=== PATIENT | male | born 1980 | race African-American/Black ===

== ENCOUNTER 2019-08-02 07:30 | Emergency (ER) | payer OTHER ==
[~2019-08-02] VITALS: Ht 182.9 cm; Wt 99.8 kg
[~2019-08-02 07:30] MED LIST: ACETAMINOPHEN-1 EAC1 PO; AMOXICILLIN 50500 M1; AMOXICILLIN 50500 M1 PO; AMOXICILLIN 50500 MG PO; AMOXICILLIN500 M1 PO; BYSTOLIC 5 MG5 MG PO; BYSTOLIC10 MG; CARISOPRODOL 3350 MG PO; DOXYCYCLINE 10100 M1 PO; FLEXERIL PO; HYDROCODONE-AP1 EAC6 PO; IBUPROFEN 600600 M1; IBUPROFEN 600600 M1 PO; IBUPROFEN 800800 M1 PO; IBUPROFEN 800800 MG PO; LIDOCAINE VISC100 M1 MUCOUS MEM; LISINOPRIL10 MG; LISINOPRIL20 MG PO; LISINOPRIL40 MG PO; MEDROLDOSEPACK PO; MOBIC15 MG PO; NAPROSYN500 MG PO; NOHOMEMEDICATIONS; NORCO 5-325 TA1 EACH PO; NORFLEX100 MG PO; PENICILLIN V P500 MG PO; PENICILLIN VK250 MG PO; PENICILLIN VK500 M1 PO; PREDNISONE 20 M20 MG PO; PRINIVIL20 MG; TRAMADOL 50 MG50 MG PO; ULTRAM 50MG TAB50 MG PO; ULTRAM50 MG PO; VALIUM5 MG PO; VICODIN 5-5001 EACH PO
[2019-08-02] MEDS ORDERED: AMOXICILLIN 50500 MG PO (07:46)
[2019-08-02] MEDS ORDERED: NAPROSYN500 MG PO (07:46)
[2019-08-02 08:45] VITALS: BP 141/106
== END 2019-08-02 08:45 | disposition home or self-care (01) ==
LOC: M.ERS 07:30
DX: K02.9 Dental caries, unspecified (principal); I10 Essential (primary) hypertension; Z88.6 Allergy status to analgesic agent

== ENCOUNTER 2020-05-07 23:45 | Emergency (ER) | payer OTHER ==
[~2020-05-07] VITALS: Ht 182.9 cm; Wt 97.5 kg
[2020-05-08] MEDS ORDERED: IBUPROFEN 800800 MG PO (02:38)
[2020-05-08] MEDS ORDERED: HYDROCODON-ACE1 EAC7 PO ×2 (02:38→02:41)
[2020-05-08 02:48] VITALS: BP 144/89
== END 2020-05-08 02:48 | disposition home or self-care (01) ==
LOC: M.ERS 23:45
DX: S63.611A Unspecified sprain of left index finger, initial encounter (principal); I10 Essential (primary) hypertension; Z79.899 Other long term (current) drug therapy; Z88.5 Allergy status to narcotic agent; W23.0XXA Caught, crushed, jammed, or pinched between moving objects, initial encounter; Y93.89 Activity, other specified; Y92.89 Other specified places as the place of occurrence of the external cause; Y99.8 Other external cause status

== ENCOUNTER 2020-09-02 06:15 | Emergency (ER) | payer OTHER ==
[~2020-09-02] VITALS: Ht 182.9 cm; Wt 97.5 kg
[~2020-09-02 06:15] MED LIST changes: +HYDROCODON-ACE1 EAC7 PO; +VOLTAREN GEL 1100 G2 TOP
[2020-09-02 06:23] VITALS: BP 180/115
[2020-09-02] MEDS ORDERED: MEDROLDOSEPACK PO (06:40)
[2020-09-02] MEDS ORDERED: MOBIC15 MG PO (06:40)
== END 2020-09-02 06:46 | disposition home or self-care (01) ==
LOC: M.ERS 06:15
DX: S83.91XA Sprain of unspecified site of right knee, initial encounter (principal); I10 Essential (primary) hypertension; Z98.890 Other specified postprocedural states; Z79.899 Other long term (current) drug therapy; Z88.5 Allergy status to narcotic agent; W03.XXXA Other fall on same level due to collision with another person, initial encounter; Y93.61 Activity, american tackle football; Y92.321 Football field as the place of occurrence of the external cause; Y99.8 Other external cause status